=== PATIENT | female | born 1935 | race Caucasian/White ===

== ENCOUNTER 2016-04-11 21:07 | Inpatient (IN) | payer MEDICARE, BC ==
[~2016-04-11 21:07] MED LIST: ALLOPURINOL300 M1 PO; ASPIRIN EC81 MG PO; BABY ASPIRIN81 MG PO; CELEBREX200 MG PO; CIPRO500 M2 PO; FLUCONAZOLE100 MG PO; GLUCOPHAGE XR500 M1 PO; HYDROCHLOROTH12.5 MG PO; HYDROCHLOROTHIA25 MG PO; HYDROCODON-ACE1 EA16 PO; KEFLEX500 M4 PO; MECLIZINE HCL25 M3 PO; METOPROLOL SUCC25 MG PO; MOBIC7.5 M2 PO; MULTIVITAMIN1 TAB PO; NORCO 5-325 TA1 EACH PO; PRAVACHOL20 M1 PO; PRINIVIL10 M1 PO; PROTONIX40 M2 PO; SIMVASTATIN40 MG PO; SYNTHROID75 MC1 PO; TERCONAZOLE20 G1 VG; TOPROL XL25 M1 PO; TRAMADOL HCL50 MG PO; VITAMIN D1000 UNI1 PO; VITAMIN D31000 UNI4 PO
[2016-04-11 21:32] LABS: HGB-HEMOGLOBIN 6.6 gm/dl (12.0-15.5); MCH (MEAN CORPUSCULAR HGB) 32.4 pg (28.0-32.0); MEAN PLATELET VOLUME 8.3 cmc (9.4-12.4); NEUTROPHIL-AUTOMATED 6.5 tho/cmm (1.6-8.0); PLATELET COUNT 369 tho/cmm (150-450); RED BLOOD COUNT 2.04 mil/cmm (4.00-5.20); RED CELL DISTRIBUTION WIDTH 14.8 % (12.4-16.4); WHITE BLOOD COUNT 7.8 tho/cmm (4.0-10.0)
[2016-04-11] MEDS ORDERED: COLACE100 M1 PO (21:33)
[2016-04-11] MEDS ORDERED: MUCINEX600 M1 PO (21:34)
[2016-04-11] MEDS ORDERED: ELIQUIS5 M1 PO (21:34)
[2016-04-11] MEDS ORDERED: DAILY VALUE1 EAC1 PO (21:35)
[2016-04-11 21:37] LABS: URINE BILIRUBIN NEGATIVE (NEG); URINE BLOOD SMALL (NEG); URINE GLUCOSE (UA) MODERATE (NEG); URINE KETONE NEGATIVE (NEG); URINE LEUKOCYTE ESTERASE NEGATIVE (NEG); URINE NITRITE NEGATIVE (NEG)
[2016-04-11] MEDS ORDERED: [UNRECOGNIZED DRUG - OTHER] (21:37)
[2016-04-11 21:38] LABS: URINE COLOR YELLOW
[2016-04-11 21:39] LABS: URINE APPEARANCE HAZY; URINE SPECIFIC GRAVITY 1.017 (1.003-1.030)
[2016-04-11] MEDS ORDERED: AMITRIPTYLINE H25 M1 PO (21:39)
[2016-04-11] MEDS ORDERED: MIRALAX17 G2 PO (21:40)
[2016-04-11] MEDS ORDERED: FEVERALL650 MG PR (21:41)
[2016-04-11 21:43] LABS: URINE AMORPHOUS 2+; URINE EPITHELIAL CELLS 0-2 /[HPF] (0-10); URINE PROT SULFOSALICYLIC ACID 1+ (NEG); URINE RBC 0-2 /[HPF] (0-5); URINE WBC RARE /[HPF] (0-5)
[2016-04-11] MEDS ORDERED: PAIN RELIEF325 M1 PO (21:43)
[2016-04-11] MEDS ORDERED: BISCOLAX10 MG PR (21:44)
[2016-04-11] MEDS ORDERED: FLEET ENEMA133 ML PR (21:44)
[2016-04-11] MEDS ORDERED: MILK OF MAGNESIA (21:45)
[2016-04-11] MEDS ORDERED: IPRAT-ALBUT 0.5-3 ML INH (21:47)
[2016-04-11 21:50] LABS: ALB/GLOB RATIO 0.4 (0.8-2.0); ALBUMIN 1.6 g/dl (3.5-5.0); ALKALINE PHOSPHATASE 135 U/L (33-138); ALT/SGPT 41 U/L (12-78); ANION GAP 15 mmol/L (0-20); AST/SGOT 30 U/L (10-40); BILIRUBIN,TOTAL 0.2 mg/dl (0-1.5); BLOOD UREA NITROGEN 28 mg/dl (6-24); CARBON DIOXIDE-VENOUS 19 mmol/L (22-32); CHLORIDE 107 mmol/l (96-110); CREATININE 1.56 mg/dl (0.50-1.10); GLUCOSE 230 mg/dL (70-110); POTASSIUM 4.3 mmol/L (3.7-5.1); SODIUM 137 mmol/L (135-145); eGFR VALUE FOR BLACK 39 mL/Min
[2016-04-11] MEDS ORDERED: LEVAQUIN500 M1 (21:53)
[2016-04-11 22:03] LABS: BAND % 17 % (0-20); BAND ABSOLUTE COUNT 1.3 tho/cmm (0-2.0)
[2016-04-12 01:10] LABS: PROTHROMBIN TIME 23.5 SECONDS (9.0-13.6)
[2016-04-12 01:13] LABS: MAGNESIUM 0.9 mg/dl (1.3-2.6)
[2016-04-12 01:16] LABS: C-REACTIVE PROTEIN 20.9 mg/dl (0-0.9)
[2016-04-12 05:09] LABS: ANION GAP 13 mmol/L (0-20); BLOOD UREA NITROGEN 27 mg/dl (6-24); CALCIUM 9.8 mg/dl (8.5-10.5); CARBON DIOXIDE-VENOUS 22 mmol/L (22-32); CHLORIDE 109 mmol/l (96-110); CREATININE 1.31 mg/dl (0.50-1.10); FERRITIN 1122 ng/ml (8-250); GLUCOSE 147 mg/dL (70-110); POTASSIUM 4.2 mmol/L (3.7-5.1); SODIUM 140 mmol/L (135-145); eGFR VALUE FOR BLACK 48 mL/Min
[2016-04-12 05:12] LABS: MCH (MEAN CORPUSCULAR HGB) 32.5 pg (28.0-32.0); MCHC MEAN CORPUSCULAR HGB CONC 33.3 % (32.0-36.0); MCV (MEAN CELL VOLUME) 97.6 fl (82.0-96.0); MEAN PLATELET VOLUME 8.6 cmc (9.4-12.4); NEUTROPHIL-AUTOMATED 4.7 tho/cmm (1.6-8.0); PLATELET COUNT 308 tho/cmm (150-450); RED BLOOD COUNT 2.46 mil/cmm (4.00-5.20); RED CELL DISTRIBUTION WIDTH 15.2 % (12.4-16.4); WHITE BLOOD COUNT 6.3 tho/cmm (4.0-10.0)
[2016-04-12 05:21] LABS: IRON 35 ug/dl (37-170); IRON BINDING CAPACITY 105 ug/dl (250-450)
[2016-04-12 07:22] LABS: BAND % 21 % (0-20); BAND ABSOLUTE COUNT 1.3 tho/cmm (0-2.0)
[2016-04-12 17:52] LABS: MAGNESIUM 1.8 mg/dl (1.3-2.6); PHOSPHOROUS 1.8 mg/dl (2.5-4.9)
[2016-04-13 04:53] LABS: HCT-HEMATOCRIT 26.2 % (34.0-49.0); HGB-HEMOGLOBIN 8.6 gm/dl (12.0-15.5); MCH (MEAN CORPUSCULAR HGB) 31.5 pg (28.0-32.0); MCHC MEAN CORPUSCULAR HGB CONC 32.8 % (32.0-36.0); MEAN PLATELET VOLUME 8.3 cmc (9.4-12.4); NEUTROPHIL-AUTOMATED 4.4 tho/cmm (1.6-8.0); PLATELET COUNT 282 tho/cmm (150-450); RED BLOOD COUNT 2.73 mil/cmm (4.00-5.20); RED CELL DISTRIBUTION WIDTH 16.7 % (12.4-16.4)
[2016-04-13 04:54] LABS: BASO % 0.5 % (0-2); EOS % 1.5 % (0-7); EOSINOPHIL ABSOLUTE COUNT 0.1 tho/cmm (0.0-0.7); IMMATURE GRANULOCYTES ABSOLUTE 0.32 tho/cmm (0-0.03); IMMATURE GRANULOCYTES PERCENT 5.4 % (0-0.3); LYMPH % 13.1 % (20-45); LYMPH ABSOLUTE COUNT 0.8 tho/cmm (0.8-4.5); MONO % 5.4 % (0-12); MONOCYTE ABSOLUTE COUNT 0.3 tho/cmm (0.0-1.2); NEUTROPHIL ABSOLUTE COUNT 4.4 tho/cmm (1.6-8.0); NEUTROPHILS % 74.1 % (40-80)
[2016-04-13 04:56] LABS: INR 1.5 INR (0.9-1.1)
[2016-04-13 05:13] LABS: ANION GAP 13 mmol/L (0-20); BLOOD UREA NITROGEN 24 mg/dl (6-24); C-REACTIVE PROTEIN 14.7 mg/dl (0-0.9); CALCIUM 9.5 mg/dl (8.5-10.5); CARBON DIOXIDE-VENOUS 20 mmol/L (22-32); CHLORIDE 110 mmol/l (96-110); CREATININE 1.22 mg/dl (0.50-1.10); GLUCOSE 116 mg/dL (70-110); MAGNESIUM 1.7 mg/dl (1.3-2.6); SODIUM 139 mmol/L (135-145); eGFR VALUE FOR BLACK 52 mL/Min
[2016-04-13 05:21] LABS: PROTHROMBIN TIME 17.1 SECONDS (9.0-13.6)
[2016-04-13 05:45] LABS: ESR-ERYTHROCYTE SED RATE >140 mm/hr (0-30)
[2016-04-14 05:48] LABS: ANION GAP 13 mmol/L (0-20); BLOOD UREA NITROGEN 23 mg/dl (6-24); CALCIUM 10.4 mg/dl (8.5-10.5); CARBON DIOXIDE-VENOUS 21 mmol/L (22-32); CHLORIDE 107 mmol/l (96-110); CREATININE 1.22 mg/dl (0.50-1.10); GLUCOSE 92 mg/dL (70-110); PHOSPHOROUS 2.7 mg/dl (2.5-4.9); POTASSIUM 4.1 mmol/L (3.7-5.1); SODIUM 137 mmol/L (135-145); eGFR VALUE FOR BLACK 52 mL/Min
[2016-04-14 05:50] LABS: MAGNESIUM 1.5 mg/dl (1.3-2.6)
[2016-04-15] MEDS ORDERED: LEVAQUIN750 M1 PO (13:39)
[2016-04-15] MEDS ORDERED: NYSTATIN100000 UNI SSW (13:45)
[2016-04-15] MEDS ORDERED: CULTURELLE1 EAC1 PO (13:52)
== END 2016-04-15 14:30 | DRG 871 ==
LOC: EDMED 21:07 → EMR2 04-12 00:15 → PCUB 04-12 01:23
PROVIDERS: Emergency Medicine; Hospitalist; Nurse Practitioner; ADMIT Hospitalist
PROC: 30233N1 Transfusion of Nonautologous Red Blood Cells into Peripheral Vein, Percutaneous Approach (ICD-10-PCS; 2016-04-12)
PROC: 0DB98ZX Excision of Duodenum, Via Natural or Artificial Opening Endoscopic, Diagnostic (ICD-10-PCS; principal; 2016-04-14)
DX: A41.9 Sepsis, unspecified organism (principal); J18.9 Pneumonia, unspecified organism; N17.9 Acute kidney failure, unspecified; E87.2 Acidosis; E11.9 Type 2 diabetes mellitus without complications; B37.0 Candidal stomatitis; E86.9 Volume depletion, unspecified; D50.9 Iron deficiency anemia, unspecified; I12.9 Hypertensive chronic kidney disease with stage 1 through stage 4 chronic kidney disease, or unspecified chronic kidney disease; E44.1 Mild protein-calorie malnutrition; R65.20 Severe sepsis without septic shock; K58.9 Irritable bowel syndrome, unspecified; N18.9 Chronic kidney disease, unspecified; E03.9 Hypothyroidism, unspecified; M10.9 Gout, unspecified; K64.4 Residual hemorrhoidal skin tags; K64.8 Other hemorrhoids; M19.90 Unspecified osteoarthritis, unspecified site; K21.9 Gastro-esophageal reflux disease without esophagitis; J02.9 Acute pharyngitis, unspecified; E83.42 Hypomagnesemia; Z86.718 Personal history of other venous thrombosis and embolism; Z79.01 Long term (current) use of anticoagulants; Z79.84 Long term (current) use of oral hypoglycemic drugs; Z79.82 Long term (current) use of aspirin; Z87.891 Personal history of nicotine dependence; Z96.643 Presence of artificial hip joint, bilateral
CPT/HCPCS: C1751; C9113; J1815; J1940; J1956; J3370; J3475; J7030; J7050; P9016

== ENCOUNTER 2016-07-27 17:08 | Emergency (ER) | payer OTHER, MEDICARE, BC ==
[~2016-07-27 17:08] MED LIST changes: +AMITRIPTYLINE H25 M1 PO; +BISCOLAX10 MG PR; +COLACE100 M1 PO; +CULTURELLE1 EAC1 PO; +DAILY VALUE1 EAC1 PO; +ELIQUIS5 M1 PO; +FEVERALL650 MG PR; +FLEET ENEMA133 ML PR; +IPRAT-ALBUT 0.5-3 ML INH; +LEVAQUIN500 M1; +LEVAQUIN750 M1 PO; +MILK OF MAGNESIA; +MIRALAX17 G2 PO; +MUCINEX600 M1 PO; +NYSTATIN100000 UNI SSW; +PAIN RELIEF325 M1 PO; +[UNRECOGNIZED DRUG - OTHER]
[2016-07-27 18:50] LABS: BASO % 0.6 % (0-2); BASO ABSOLUTE COUNT 0.1 tho/cmm (0.0-0.2); EOSINOPHIL ABSOLUTE COUNT 0.1 tho/cmm (0.0-0.7); HCT-HEMATOCRIT 29.3 % (34.0-49.0); HGB-HEMOGLOBIN 9.6 gm/dl (12.0-15.5); IMMATURE GRANULOCYTES ABSOLUTE 0.03 tho/cmm (0-0.03); IMMATURE GRANULOCYTES PERCENT 0.3 % (0-0.3); LYMPH % 23.6 % (20-45); LYMPH ABSOLUTE COUNT 2.2 tho/cmm (0.8-4.5); MCH (MEAN CORPUSCULAR HGB) 33.8 pg (28.0-32.0); MCHC MEAN CORPUSCULAR HGB CONC 32.8 % (32.0-36.0); MCV (MEAN CELL VOLUME) 103.2 fl (82.0-96.0); MEAN PLATELET VOLUME 9.3 cmc (9.4-12.4); MONO % 8.4 % (0-12); MONOCYTE ABSOLUTE COUNT 0.8 tho/cmm (0.0-1.2); NEUTROPHIL ABSOLUTE COUNT 6.2 tho/cmm (1.6-8.0); NEUTROPHIL-AUTOMATED 6.2 tho/cmm (1.6-8.0); NEUTROPHILS % 66.1 % (40-80); PLATELET COUNT 220 tho/cmm (150-450); RED BLOOD COUNT 2.84 mil/cmm (4.00-5.20); RED CELL DISTRIBUTION WIDTH 13.7 % (12.4-16.4); WHITE BLOOD COUNT 9.3 tho/cmm (4.0-10.0)
[2016-07-27 18:55] LABS: INR 2.6 INR (0.9-1.1); PROTHROMBIN TIME 31.3 SECONDS (9.0-13.6)
[2016-07-27 19:02] LABS: ANION GAP 17 mmol/L (0-20); BLOOD UREA NITROGEN 44 mg/dl (6-24); CALCIUM 9.9 mg/dl (8.5-10.5); CARBON DIOXIDE-VENOUS 22 mmol/L (22-32); CHLORIDE 106 mmol/l (96-110); CREATININE 2.02 mg/dl (0.50-1.10); GLUCOSE 124 mg/dL (70-110); POTASSIUM 4.7 mmol/L (3.7-5.1); SODIUM 140 mmol/L (135-145); eGFR VALUE FOR BLACK 27 mL/Min
== END 2016-07-27 20:20 ==
LOC: EDMED 17:08
PROVIDERS: Emergency Medicine
DX: S13.4XXA Sprain of ligaments of cervical spine, initial encounter (principal); S10.93XA Contusion of unspecified part of neck, initial encounter; S20.219A Contusion of unspecified front wall of thorax, initial encounter; S80.12XA Contusion of left lower leg, initial encounter; E11.22 Type 2 diabetes mellitus with diabetic chronic kidney disease; I12.9 Hypertensive chronic kidney disease with stage 1 through stage 4 chronic kidney disease, or unspecified chronic kidney disease; N18.9 Chronic kidney disease, unspecified; D64.9 Anemia, unspecified; Z88.2 Allergy status to sulfonamides; Z88.0 Allergy status to penicillin; V49.40XA Driver injured in collision with unspecified motor vehicles in traffic accident, initial encounter